=== PATIENT | male | born 1945 | race Hispanic/Latino ===

== ENCOUNTER → 2017-12-16 | Outpatient (CLI) | payer OTHER ==
[~2017-12-16] MED LIST: ALBU8.5H8 IH; ASPI-1005 PO; ATOR10 PO; FURO20TA4 PO; ISOS60TA4 PO; LISI-617 PO; MELO-106 PO; METO-391 PO; NITR0.4T SL; OMEP20CA10 PO; PRAS10TA6 PO; SPIR25TA6 PO
== END | disposition home or self-care (01) ==
LOC: SHCH 10:00
PROVIDERS: ATTEND Internal Medicine Cardiovascular Disease
DX: I25.5 Ischemic cardiomyopathy (principal); I11.0 Hypertensive heart disease with heart failure; I50.22 Chronic systolic (congestive) heart failure; E78.5 Hyperlipidemia, unspecified; I25.10 Atherosclerotic heart disease of native coronary artery without angina pectoris; Z87.891 Personal history of nicotine dependence; Z95.0 Presence of cardiac pacemaker
CPT/HCPCS: 78481; A9512

== ENCOUNTER 2018-06-03 08:40 | Day surgery (SDC) | payer OTHER ==
[~2018-06-03] VITALS: Ht 175.3 cm; Wt 82.4 kg
[2018-06-03] VITALS (7 sets, daily range): BP systolic 102–139; BP diastolic 60–81
[~2018-06-03 08:40] MED LIST changes: -ALBU8.5H8 IH; -ASPI-1005 PO; -FURO20TA4 PO; -LISI-617 PO; +LORA0.5T2 PO; -METO-391 PO; -OMEP20CA10 PO; +PANT40TA25 PO; -PRAS10TA6 PO; +SODIUM CHLORIDE 0.9% 1000ML 1,000 ML IV ONE; +TAMS0.4C32 PO; +TRAM50TA4 PO; +VALS40TA11 PO
[2018-06-03] MEDS ORDERED: PROPOFOL 10 MG/ML 20ML VIAL IV ONE ×2 (10:48)
== END 2018-06-03 12:00 | disposition home or self-care (01) ==
LOC: ENDO 08:40 → DAH 08:40 → ENDO 12:00
PROVIDERS: ATTEND Internal Medicine
DX: D12.3 Benign neoplasm of transverse colon (principal); D12.0 Benign neoplasm of cecum; K63.5 Polyp of colon; D12.2 Benign neoplasm of ascending colon; R19.4 Change in bowel habit; I25.10 Atherosclerotic heart disease of native coronary artery without angina pectoris; I50.20 Unspecified systolic (congestive) heart failure; E78.5 Hyperlipidemia, unspecified; J44.9 Chronic obstructive pulmonary disease, unspecified; I11.0 Hypertensive heart disease with heart failure; F41.9 Anxiety disorder, unspecified; Z95.0 Presence of cardiac pacemaker; Z95.1 Presence of aortocoronary bypass graft; Z95.5 Presence of coronary angioplasty implant and graft; K57.30 Diverticulosis of large intestine without perforation or abscess without bleeding
CPT/HCPCS: 45380; 45385; 88305 ×2; 93005; A4606; J2704 ×2; J7030

== ENCOUNTER 2018-07-08 06:44 | Day surgery (SDC) | payer OTHER ==
[~2018-07-08] VITALS: Ht 180.3 cm; Wt 82.7 kg
[~2018-07-08 06:44] MED LIST changes: +BREO; +FURO20TA4 PO
[2018-07-08 07:55] VITALS: BP 106/68
[2018-07-08] MEDS ORDERED: PROPOFOL 10 MG/ML 20ML VIAL IV ONE (09:31)
[2018-07-08 09:55] VITALS: BP 76/47
[2018-07-08 10:00] VITALS: BP 88/62
[2018-07-08 10:05] VITALS: BP 94/56
[2018-07-08 10:10] VITALS: BP 99/65
[2018-07-08 10:15] VITALS: BP 108/72
== END 2018-07-08 10:35 | disposition home or self-care (01) ==
LOC: DAH 06:44
PROVIDERS: ATTEND Internal Medicine
DX: K29.50 Unspecified chronic gastritis without bleeding (principal); K21.0 Gastro-esophageal reflux disease with esophagitis; R63.4 Abnormal weight loss; K44.9 Diaphragmatic hernia without obstruction or gangrene; I25.10 Atherosclerotic heart disease of native coronary artery without angina pectoris; F41.9 Anxiety disorder, unspecified; Z95.0 Presence of cardiac pacemaker; Z95.1 Presence of aortocoronary bypass graft; Z95.5 Presence of coronary angioplasty implant and graft; Z79.899 Other long term (current) drug therapy; Z98.890 Other specified postprocedural states; J44.9 Chronic obstructive pulmonary disease, unspecified; E78.5 Hyperlipidemia, unspecified; I11.0 Hypertensive heart disease with heart failure; I50.20 Unspecified systolic (congestive) heart failure
CPT/HCPCS: 43239; 88305; 93005; A4606; J2704; J7030

== ENCOUNTER → 2020-03-30 | Outpatient (CLI) | payer OTHER ==
[~2020-03-30] MED LIST changes: -PANT40TA25 PO; -SODIUM CHLORIDE 0.9% 1000ML 1,000 ML IV ONE
== END | disposition home or self-care (01) ==
LOC: SHCH 13:25
PROVIDERS: ATTEND Internal Medicine Cardiovascular Disease
DX: I25.5 Ischemic cardiomyopathy (principal)
CPT/HCPCS: 93306; 93356

== ENCOUNTER → 2020-05-01 | Outpatient (CLI) | payer OTHER ==
[~2020-05-01] MED LIST changes: +REGADENOSON 0.4 MG/5 ML PF SYG IVP SCH
== END | disposition home or self-care (01) ==
LOC: SHCH 11:02
PROVIDERS: ATTEND Internal Medicine Cardiovascular Disease
DX: I25.10 Atherosclerotic heart disease of native coronary artery without angina pectoris (principal); I42.9 Cardiomyopathy, unspecified; R06.00 Dyspnea, unspecified
CPT/HCPCS: 78452; 93017; 96374; A9500 ×2; J2785